=== PATIENT | female | born 1985 | race Caucasian/White ===

== ENCOUNTER 2022-06-12 14:02 | Observation (INO) ==
[2022-06-12] MEDS ORDERED: Lactated Ringers 1000 ml BAG 1,000 ML IV ONE (14:57)
[2022-06-12] MEDS ORDERED: Rocuronium 50 mg VIAL 10 mg/ml 5 ml VIAL (50 mg) ONE (16:11)
[2022-06-12] MEDS ORDERED: Succinylcholine 200 mg VIAL 20 mg/ml 10 ml VIAL (200 mg) ONE (16:11)
[2022-06-12] MEDS ORDERED: fentaNYL 250 mcg/5 ml 50 MCG/ML 5 ml VIAL (250 MCG) ONE (16:11)
[2022-06-12] MEDS ORDERED: Propofol 10 MG/ML 20 ML BTL ONE (16:11)
[2022-06-12] MEDS ORDERED: Lidocaine 2% PF 5 ML VIAL ONE (16:11)
[2022-06-12] MEDS ORDERED: Midazolam 2 mg/2 ml VIAL 1 mg/ml 2 ml VIAL (2 mg) ONE (16:11)
[2022-06-12] MEDS ORDERED: Ondansetron 4 mg VIAL 2 MG/ML 2 ml VIAL IV PRN (16:22)
[2022-06-12] MEDS ORDERED: HYDROmorphone 1 MG/1 ML SYRINGE IV SLOW PU PRN (16:22)
[2022-06-12] MEDS ORDERED: Scopolamine 1 mg/72hr PATCH ONE (16:55)
[2022-06-12] MEDS ORDERED: ceFOXitin 2 GM IVPREMIX 2 GM/50 ML BAG ONE (16:57)
[2022-06-12] MEDS ORDERED: Dexamethasone IV 4 MG/ML VIAL 1 ml VIAL ONE (17:28)
[2022-06-12] MEDS ORDERED: Phenylephrine IV 10 MG/ML 1 ml VIAL ONE (17:29)
[2022-06-12] MEDS ORDERED: Acetaminophen IV 1 GM/100ML 1,000 MG/100 ML BAG IV ONE (17:54)
[2022-06-12] MEDS ORDERED: Ondansetron 4 mg VIAL 2 MG/ML 2 ml VIAL ONE ×2 (18:12→18:55)
[2022-06-12] MEDS ORDERED: HYDROmorphone 1 MG/1 ML SYRINGE IV PRN (18:21)
[2022-06-12] MEDS ORDERED: Naloxone 0.4 mg VIAL 0.4 mg/ml 1 ml VIAL IV PRN (18:21)
[2022-06-12] MEDS ORDERED: Prochlorperazine 5 mg/ml 2 ml VIAL (10 mg) ONE (18:58)
[2022-06-12] MEDS ORDERED: Prochlorperazine 5 mg/ml 2 ml VIAL (10 mg) IV ONE (18:59)
[2022-06-12] MEDS ORDERED: HYDROmorphone 1 MG/1 ML SYRINGE ONE (19:23)
[2022-06-12] MEDS ORDERED: LACTATED RINGERS 1000 ML BAG IV SCH (22:00)
[2022-06-13 11:19] VITALS: BP 90/50
== END 2022-06-13 15:15 | disposition home or self-care (01) ==
LOC: ED 14:02 → EDHOLD 14:02 → SSU 20:49
PROVIDERS: ADMIT Surgery; ATTEND Surgery